=== PATIENT | male | born 1990 | race African-American/Black ===

== ENCOUNTER 2025-03-06 00:07 | Emergency (ER) | payer OTHER ==
[~2025-03-06] VITALS: Ht 172.7 cm; Wt 79.6 kg
[2025-03-06 00:20] VITALS: BP 156/110; PULSE 105; RESP 20; TEMP 99.1; O2SAT 95
--- NOTE | 2025-03-06 01:11 | DVH ---
EXAMINATION: XY R RIB XRAY INDICATION: trauma and pain COMPARISON: None TECHNIQUE: Frontal view of the chest and 2 views of the right ribs history FINDINGS: No focal consolidation, pleural effusion or significant pneumothorax. Normal cardiomediastinal silhouette. No displaced right rib fracture. IMPRESSION: No acute abnormality.
--- NOTE | 2025-03-06 01:14 | ED.PDOC ---
Back pain HPI HPI Comments PT C/O 01/13 PAIN TO RIBS ON HIS RT SIDE AFTER FALLING DOWN THE STAIRS IN HIS HOUSE A DAY AGO. PT DENIES ANY OTHER SYMPTOMS OR LOC. PT A&OX4, BP ELEVATED AT 156/110, ALL OTHER VSS, RR EVEN AND UNLABORED ON RA. Chief Complaint: Rib Pain Time Seen by MD: 00:14 Reviewed Notes: Nurses Notes, Medications, Allergies Allergies: Coded Allergies: NO KNOWN ALLERGIES (Unverified , 03/06/25) Home Meds Active Scripts Indomethacin (Indomethacin) 50 Mg Cap, 1 CAP PO TID PRN for 5 Days, #30 CAP Prov:JIMBO JOLLY [employer] AIDE 03/06/25 Information Source: Patient Mode of Arrival: Ambulatory Past Medical History PAST MEDICAL HISTORY: Denies Surgical History: Denies all surgeries Family History Family History: Unknown Social History Smoker: Non-Smoker Alcohol: Denies ETOH Use Drugs: Denies Drug Use Constitutional: denies: chills, diaphoresis, fatigue, fever, malaise, sweats, weakness, others EENTM: denies: blurred vision, double vision, ear bleeding, ear discharge, ear drainage, ear pain, ear ringing, eye pain, eye redness, hearing loss, mouth pain, mouth swelling, nasal discharge, nose bleeding, nose congestion, nose pain, photophobia, tearing, throat pain, throat swelling, voice changes, others Respiratory: denies: cough, hemoptysis, orthopnea, SOB at rest, shortness of breath, SOB with excertion, stridor, wheezing, others Cardiovascular: denies: chest pain, dizzy spells, diaphoresis, Dyspnea on exertion, edema, irregular heart beat, left arm pain, lightheadedness, palpitations, PND, syncope, others Gastrointestinal: denies: abdomen distended, abdominal pain, blood streaked bowels, constipated, diarrhea, dysphagia, difficulty swallowing, hematemesis, melena, nausea, poor appetite, poor fluid intake, rectal bleeding, rectal pain, vomiting, others Genitourinary: denies: burning, dysuria, flank pain, frequency, hematuria, incontinence, penile discharge, penile sore, pain, testicle pain, testicle swell ing, urgency, others Neurological: denies: dizziness, fainting, headache, left sided numbness, left sided weakness, numbness, paresthesia, pre-existing deficit, right sided numbness, right sided weakness, seizure, speech problems, tingling, tremors, weakness, others Musculoskeletal: reports: others (chest wall pain right side); denies: back pain, gout, joint pain, joint swelling, muscle pain, muscle stiffness, neck pain Integumetry: denies: bruises, change in color, change in hair/nails, dryness, laceration, lesions, lumps, rash, wounds, others Allergic/Immunocompromised: denies: Difficulty Healing, Frequent Infections, Hives, Itching, others Hematologic/Lymphatic: denies: anemia, blood clots, easy bleeding, easy bruising, swollen glands, others Endocrine: denies: excessive hunger, excessive sweating, excessive thirst, excessive urination, flushing, intolerance to cold, intolerance to heat, unexplained weight gain, unexplained weight loss, others Psychiatric: denies: anxiety, bipolar disorder, depression, hopeless, panic disorder, schizophrenia, sleepless, suicidal, others Physical Exam General Appearance: No Apparent Distress, Normal HEENT: Pharynx Normal Neck: Full Range of Motion, Non-Tender Respiratory: Lungs Clear, No Accessory Muscle Use, No Respiratory Distress, Normal Breath Sounds, Other (Your chest tenderness on palpation right posterior lateral chest noted crepitus or flail chest) Cardiovascular: No Edema, No JVD, No Murmur, No Gallop, Normal Peripheral Pulses, Regular Rate/Rhythm Breast Exam: Deferred Gastrointestinal: No Organomegaly, Non Tender, No Pulsatile Mass, Normal Bowel Sounds, Soft Genitalia: Deferred Pelvic: Deferred Rectal: Deferred Extremities: No calf tenderness, Normal capillary refill, Normal inspection, Normal range of motion, Non-tender, No pedal edema Musculoskeletal : Apperance: Normal Neurologic: Alert, injection molding engineer II-XII nml as Tested, No Motor Deficits, Normal Affect, Normal Mood, No Sensory Deficits Cerebellar Function: Normal Reflexes: Normal Skin: Dry, Normal Color, Warm Lymphatic: No Adenopathy Was a procedure done? Was a procedure done?: No Back Pain Differential Dx Differential Diagnosis: Fracture, Musculoskeletal Pain X-Ray, Labs, Meds, VS Vital Signs Date Time Temp Pulse Resp B/P (MAP) Pulse Ox O2 Delivery O2 Flow Rate FiO2 03/06/25 00:20 99.1 105 20 156/110 95 99.1 Current Medications Medications (Trade) Dose Ordered Sig/Jose D Route Start Time Stop Time Status Last Admin Ketorolac Tromethamine (Toradol Injection) 60 mg ONCE ONCE IM 03/06/25 01:30 03/06/25 01:31 DC 03/06/25 01:29 Acetaminophen/ Hydrocodone Bitart ([place] 5/325MG Tab) 1 tab ONCE ONCE PO 03/06/25 01:30 03/06/25 01:31 DC 03/06/25 01:29 X-Ray, Labs, Meds, VS Comment Patient given Toradol 60 mg IM and and [place] 5 mg p.o.. Reports improvement in pain and function requesting discharge at this time. Script trial of NSAID advised take medication as prescribed side effects discussed. Advised to alternate between ice and heat. Advised to rest. Advised to follow up with PCP in 2-3 days as necessary consider further treatments such as MRI, physical therapy, or pain managment referral if symptoms persist. Advised on ER return precautions for increasing pain, numbness, weakness, jun or sob. Patient indicates understanding agrees with discharge plan of care. Images Reviewed?: Images reviewed and evaluated by me Time of 1ST Reevaluation: 00:14 Reevaluation 1ST: Unchanged Time of 2ND Reevaluation: 01:22 Reevaluation 2ND: Improved Patient Education/Counseling: Diagnosis, Treatment, Need For Follow Up Family Education/Counseling: No Family Present SEPSIS Sepsis Screen Date sepsis recognized/suspect: Mar 06, 2025 Time Sepsis recognized/suspect: 0023 Recent Procedure: No On Antibiotic Therapy: No Respiratory Rate >20: No Heart Rate >90: Yes Temp<36 C (96.8 F) or >38.3 C: No SBP <90 or MAP <65 mmHG: No New Acute Mental Status Change: No Is the patient on CPAP, BIPAP,: No Physician Orders R Rib Xray (03/06/25 00:15) Vital Signs Date Time Temp Pulse Resp B/P (MAP) Pulse Ox O2 Delivery O2 Flow Rate FiO2 03/06/25 00:20 99.1 105 20 156/110 95 99.1 Medications Medications Dose Ordered Sig/Jose D Route Start Time Stop Time Status Last Admin Dose Admin Acetaminophen/ Hydrocodone Bitart 1 tab ONCE ONCE PO 03/06/25 01:30 03/06/25 01:31 DC 03/06/25 01:29 Ketorolac Tromethamine 60 mg ONCE ONCE IM 03/06/25 01:30 03/06/25 01:31 DC 03/06/25 01:29 Departure 1 Departure Time of Disposition: 01:19 Impression: Primary Impression: Contusion of rib on right side Qualified Codes: S29.8XXA - Other specified injuries of thorax, initial encounter Disposition: HOME / SELF CARE / HOMELESS Condition: Stable e-Prescriptions Indomethacin (Indomethacin) 50 Mg Cap 1 CAP PO TID PRN for 5 Days, #30 CAP Prov: JIMBO JOLLY 03/06/25 Discharged With: Self Critical Care Note Critical Care Time?: No Stability Stability form required: No JIMBO JOLLY Mar 06, 2025 01:14
[2025-03-06] MEDS ORDERED: INDO50CA82 PO (01:21)
[2025-03-06] MEDS: HYDROcodone-ACET 5/325MG TAB PO ONE (01:29)
[2025-03-06] MEDS: KETOROLAC TROMETH 60MG/2ML VIAL IM ONE (01:29)
== END 2025-03-06 01:37 | disposition home or self-care (01) ==
LOC: ER 00:07
DX: S20.211A Contusion of right front wall of thorax, initial encounter (principal); W10.9XXA Fall (on) (from) unspecified stairs and steps, initial encounter; Y93.89 Activity, other specified; Y92.89 Other specified places as the place of occurrence of the external cause; Y99.8 Other external cause status
CPT/HCPCS: 71101; 96372; 99283; J1885